=== PATIENT | male | born 1960 | race African-American/Black ===

== ENCOUNTER 2025-09-19 00:54 | Day surgery (SDC) | payer OTHER, SELFPAY ==
[2025-09-16 12:39] VITALS: BMI 30.3
[2025-09-19 07:41] VITALS: BP 148/93; PULSE 82; RESP 18; TEMP 36.1; O2SAT 93; BMI 30.2
[2025-09-19] MEDS: LACTATED RINGERS 1,000 ML 150 ML IV CONT (07:57)
--- NOTE | 2025-09-19 08:09 | WPDANESEPPF ---
Anes - Initial Pre Proc Eval Procedure: Operation Date: 09/19/25 09:00 Proposed Procedures p Screening Colonoscopy - Roque Bourne MD Date/Time: 09/19/25 08:09 Surgeon: Roque Bourne MD Pre Op Diagnosis: screening,hx of colon polyps Patient Data Age: 65 Gender: M Height: 1.88 m Weight: 107 kg Last Vital Signs Temp 97 F L 09/19/25 07:41 Pulse 82 09/19/25 07:41 Resp 18 09/19/25 07:41 BP 148/93 H 09/19/25 07:41 Pulse Ox 93 09/19/25 07:41 O2 Del Method Room Air 09/19/25 07:41 Allergies Allergy/AdvReac Type Severity Reaction Status Date / Time No Known Allergies Allergy Verified 09/19/25 07:39 Home Medications ?Medication ?Instructions ?Recorded ?Confirmed ?Type atorvastatin 40 mg tablet (Lipitor) 40 mg PO DAILY 09/16/25 09/19/25 History diclofenac sodium 1 % topical gel 2 g topical BID PRN pain 09/16/25 09/16/25 History (Arthritis Pain (diclofenac)) duloxetine 60 mg capsule,delayed 60 mg PO DAILY 09/16/25 09/19/25 History release (Cymbalta) famotidine 20 mg tablet 20 mg PO BID PRN acid reflux 09/16/25 09/16/25 History hydrochlorothiazide 25 mg tablet 25 mg PO DAILY 09/16/25 09/19/25 History levothyroxine 25 mcg capsule 25 mcg PO DAILY 09/16/25 09/19/25 History lisinopril 40 mg tablet 40 mg PO DAILY 09/16/25 09/19/25 History metformin 1,000 mg tablet 1,000 mg PO BID 09/16/25 09/19/25 History semaglutide 1 mg/dose (4 mg/3 mL) 2 mg subcut WEEKLY 09/16/25 09/19/25 History subcutaneous pen injector (Ozempic) Laboratory Tests 09/19/25 07:59 POC Capillary Glucose 81 mg/dl (65-105) Patient hx anesthesia problems: none Family hx anesthesia problems: none Results Review: All pre-operative results and documents have been reviewed as part of the pre-operative evaluation. [facility] Social History Social History Living arrangements: incarcerated Anes - Eval Final PreProcedure Day of Procedure 09/19/25 08:09 Patient weight: obese Lungs: normal air movement Airway: Mallampati scale class II and special considerations (Upper and lower partials. ) Neurological: alert and oriented Last oral intake: >/= 8 hours ASA classification: III Emergent: no Anesthetic plan: proceed Anesthesia type and monitoring: general GIVS and standard monitoring Results Review: All pre-operative results and documents have been reviewed as part of the pre-operative evaluation. HTN, hyperlipidemia, DM 81, hypothyroidism, ex smoker quit 2014. Pt can walk 1-2 fos, no cp or sob. Informed Consent: The patient's anesthetic plan and its attendant risks and benefits were discussed with the patient/family/POA. Questions were solicited and answers provided to the satisfaction of the patient/family/POA.
--- NOTE | 2025-09-19 08:11 | PM.HPGS ---
History of Present Illness History of Present Illness Consent: Risks, benefits, and alternatives have been discussed and questions answered. Patient agrees to proceed with procedure. Chief complaint: screening,hx of colon polyps Narrative: Ahmet Quiroga is a 65 year old male with history of polyp Review of Systems Review of Systems: All systems reviewed & are unremarkable except as noted in HPI and below PMFSH Past Medical History Medical History (Updated 09/19/25 @ 08:12 by Roque Bourne MD) Colon polyp Social History Social History Living arrangements: incarcerated Meds Home Medications and Allergies Home Medications ?Medication ?Instructions ?Recorded ?Confirmed ?Type atorvastatin 40 mg tablet (Lipitor) 40 mg PO DAILY 09/16/25 09/19/25 History diclofenac sodium 1 % topical gel 2 g topical BID PRN pain 09/16/25 09/16/25 History (Arthritis Pain (diclofenac)) duloxetine 60 mg capsule,delayed 60 mg PO DAILY 09/16/25 09/19/25 History release (Cymbalta) famotidine 20 mg tablet 20 mg PO BID PRN acid reflux 09/16/25 09/16/25 History hydrochlorothiazide 25 mg tablet 25 mg PO DAILY 09/16/25 09/19/25 History levothyroxine 25 mcg capsule 25 mcg PO DAILY 09/16/25 09/19/25 History lisinopril 40 mg tablet 40 mg PO DAILY 09/16/25 09/19/25 History metformin 1,000 mg tablet 1,000 mg PO BID 09/16/25 09/19/25 History semaglutide 1 mg/dose (4 mg/3 mL) 2 mg subcut WEEKLY 09/16/25 09/19/25 History subcutaneous pen injector (Ozempic) Allergies Allergy/AdvReac Type Severity Reaction Status Date / Time No Known Allergies Allergy Verified 09/19/25 07:39 Vital Signs Vital Signs - 24 hr 09/19/25 07:41 Temperature 97 F L Pulse Rate 82 Respiratory Rate 18 Blood Pressure 148/93 H Pulse Oximetry 93 Oxygen Delivery Room Air Exam Const: General: comfortable and no acute distress HENMT: Face/Nose/Sinus: Normal nares present Eyes: General: appearance normal, both eyes and all related structures Neck: Neck: no JVD Resp: Auscultation: clear to auscultation bilaterally Cardio: Rate: regular rate Rhythm: regular rhythm GI: Inspection: non-distended GI Palp: Yes Soft to palpation Skin: General skin exam: normal color Extrem: General: normal to inspection Psych: Mental Status: mental status grossly normal Assessment and Plan Assessment and plan (1) Colon polyp: Code(s): K63.5 - Polyp of colon Status: Acute Assessment and Plan: colonoscopy
--- NOTE | 2025-09-19 08:34 | S_PTH ---
PATIENT: Ahmet Quiroga LOC: [facility]#:[id number] AGE/SX: 65/M ROOM: RE09/19/[address]: Roque Bourne MD : 1960 BED: DIS: 09/19/2025 SPEC #: [id number] RECD: 09/19/25 10:03 STATUS: HUANG DUNN #: [id number] SLAVA: 09/19/25 08:[address]: Roque Bourne DEPT: [facility] Surgical RECD BY: Sheela Montez ENTERED: 09/19/25 10:03 SP TYPE: Surgical OTHR DR: UNKNOWN,DOCTOR Tissues: A - Colon Polypectomy Procedures: Hematoxylin and Eosin Stain Gross and Microscopic Level 4
[2025-09-19 08:36] VITALS: BP 115/77; PULSE 72; RESP 16; O2SAT 100
--- NOTE | 2025-09-19 08:40 | SUR.OPER ---
2/3 transverse colon polyps retrieved, Dr. Kearney notified.
[2025-09-19 08:46] VITALS: BP 110/76; PULSE 71; RESP 10; O2SAT 100
[2025-09-19 08:56] VITALS: BP 102/84; PULSE 73; RESP 20; O2SAT 100
== END 2025-09-19 09:12 | disposition home or self-care (01) ==
PROVIDERS: Visit Provider Internal Medicine Gastroenterology
PROC: 0DJD8ZZ Inspection of Lower Intestinal Tract, Via Natural or Artificial Opening Endoscopic (ICD-10-PCS; CPT 45378; principal; 2025-09-19 09:00)
DX: Z12.11 Encounter for screening for malignant neoplasm of colon (principal); D12.3 Benign neoplasm of transverse colon; K64.8 Other hemorrhoids; Z79.85 Long-term (current) use of injectable non-insulin antidiabetic drugs; Z79.84 Long term (current) use of oral hypoglycemic drugs; E66.9 Obesity, unspecified; Z68.30 Body mass index [BMI] 30.0-30.9, adult
CPT/HCPCS: 45385; 82948; 88305; J2003; J2704; J7120